=== PATIENT | male | born 1965 | race Caucasian/White ===

== ENCOUNTER 2016-08-24 19:32 | Emergency (ER) | payer BC ==
[2016-08-24] MEDS ORDERED: ACETAMINOPHEN 325 MG TABLET PO ONE (21:52)
--- NOTE | 2016-08-24 21:52 | ER Document Report ---
ED Medical Screen (RME) - General Stated Complaint: FLU LIKE SYMPTOMS Mode of Arrival: Ambulatory Information source: Patient Notes: Patient complains of flulike symptoms for the past 3 days. Patient complains of body aches and headache. Patient developed a rash today that is not pruritic. Patient has been on Bactrim for the past 10 days. Patient with fever that just started today. hx: Hypertension I have greeted and performed a rapid initial assessment of this patient. A comprehensive ED assessment and evaluation of the patient, analysis of test results and completion of the medical decision making process will be conducted by additional ED providers. - Related Data Allergies/Adverse Reactions: No Known Allergies Allergy (Unverified 08/24/16 21:49) Physical Exam - General General appearance: Appears well, Alert Notes: No meningismus - Skin Character of irregularity: Erythematous - Erythematous maculopapular rash to trunk and extremities and head
[2016-08-24 22:21] LABS: ABSOLUTE EOSINOPHILS # (AUTO) 0.4 10^3/uL (0.0-0.6); ABSOLUTE LYMPHOCYTES (AUTO) 0.9 10^3/uL (0.5-4.7); ABSOLUTE MONOCYTES (AUTO) 1.4 10^3/uL (0.1-1.4); ABSOLUTE NEUT (AUTO) 5.3 10^3/uL (1.7-8.2); BASOPHILS % (AUTO) 0.3 % (0-2); EOSINOPHILS % (AUTO) 4.8 % (0-6); HEMATOCRIT 49.8 % (37.9-51.0); HEMOGLOBIN 17.2 g/dL (13.5-17.0); HGB HCT DIFFERENCE 1.8; LYMPHOCYTES % (AUTO) 10.9 % (13-45); MEAN CORPUSCULAR HEMOGLOBIN 31.4 pg (27.0-33.4); MEAN CORPUSCULAR HGB CONC 34.4 g/dL (32.0-36.0); MEAN CORPUSCULAR VOLUME 91 fl (80-97); MONOCYTES % (AUTO) 17.6 % (3-13); RED BLOOD COUNT 5.46 10^6/uL (4.35-5.55); RED CELL DISTRIBUTION WIDTH 12.2 % (11.5-14.0); SEGMENTED NEUTROPHILS % (AUTO) 66.4 % (42-78)
[2016-08-24 22:23] LABS: APPEARANCE,URINE CLEAR; BILIRUBIN,URINE NEGATIVE (NEGATIVE); GLUCOSE, URINE NEGATIVE (NEGATIVE); KETONES,URINE NEGATIVE (NEGATIVE); LEUKOCYTE ESTERASE,URINE NEGATIVE (NEGATIVE); NITRITE,URINE NEGATIVE (NEGATIVE); PROTEIN,URINE NEGATIVE (NEGATIVE); URINE SPECIFIC GRAVITY 1.026
[2016-08-24 22:30] LABS: ALANINE AMINOTRANSFERASE 37 U/L (21-72); ALBUMIN 4.4 g/dL (3.5-5.0); ALKALINE PHOSPHATASE 98 U/L (38-126); ANION GAP 12 (5-19); ASPARTATE AMINO TRANSFERASE 23 U/L (17-59); BILIRUBIN,TOTAL 0.7 mg/dL (0.2-1.3); BLOOD UREA NITROGEN 25 mg/dL (7-20); CALCIUM 8.9 mg/dL (8.4-10.2); CARBON DIOXIDE 26 mmol/L (22-30); CHLORIDE 95 mmol/L (98-107); CREATININE RESULT 1.51 mg/dL (0.52-1.25); GLUCOSE 106 mg/dL (75-110); POTASSIUM 4.6 mmol/L (3.6-5.0); SODIUM 132.8 mmol/L (137-145); TOTAL PROTEIN 7.4 g/dL (6.3-8.2)
[2016-08-24] MEDS ORDERED: DIPHENHYDRAMINE HCL 50 MG CAPSULE PO ONE (23:42)
[2016-08-24] MEDS ORDERED: PREDNISONE 20 MG TABLET PO ONE (23:42)
--- NOTE | 2016-08-24 23:45 | ER Document Report ---
ED Skin Rash/Insect Bite/Abscs - General Mode of Arrival: Ambulatory Information source: Patient TRAVEL OUTSIDE OF THE U[place] IN LAST 30 DAYS: No - HPI Patient complains to provider of: Skin rash/lesion Onset: This morning Onset/Duration: Sudden, Persistent Quality of pain: No pain Skin Character: Rash Skin Temperature: Warm Medication exposure: Antibiotic - Bacterum <MONROE TRONCOSO - Last Filed: 08/25/16 00:37> <YUMIKO NAVARRO - Last Filed: 08/25/16 04:37> - General Chief Complaint: Flu Symptoms Stated Complaint: FLU LIKE SYMPTOMS Notes: Patient is a 51-year-old male presenting to the emergency department concerned of a diffuse rash over his entire body except for palms of hands and feet onset today. Patient denies any itching with the rash. Patient also complains of headache, low back pain, and pain in his legs for the past 3 days. Patient denies any urinary incontinence, discharge, pain with bowel movements, nausea, vomiting, diarrhea, abdominal pain, sore throat, runny nose, cough, difficulty breathing, or recent foreign travel. Patient was recently prescribed an Bacterum and took his last dose yesterday. (MONROE TRONCOSO) - Related Data Allergies/Adverse Reactions: Sulfa (Sulfonamide Antibiotics) Allergy (Verified 08/25/16 00:07) Past Medical History - General Information source: Patient - Social History Smoking Status: Never Smoker Frequency of alcohol use: Social Drug Abuse: None Family History: Reviewed & Not Pertinent Patient has suicidal ideation: No Patient has homicidal ideation: No - Past Medical History Cardiac Medical History: Reports: Hx Hypertension <MONROE TRONCOSO - Last Filed: 08/25/16 00:37> Review of Systems - Review of Systems Constitutional: No symptoms reported EENT: No symptoms reported Cardiovascular: No symptoms reported Respiratory: No symptoms reported Gastrointestinal: No symptoms reported Genitourinary: No symptoms reported Male Genitourinary: No symptoms reported Musculoskeletal: See HPI, Back pain, Other - Leg pain Skin: See HPI, Rash Hematologic/Lymphatic: No symptoms reported Neurological/Psychological: See HPI, Headaches -: Yes All other systems reviewed and negative <MONROE TRONCOSO - Last Filed: 08/25/16 00:37> Physical Exam - General General appearance: Alert - HEENT Head: Normocephalic, Atraumatic Eyes: Normal Pupils: PERRL - Respiratory Respiratory status: No respiratory distress Chest status: Nontender Breath sounds: Normal Chest palpation: Normal - Cardiovascular Rhythm: Regular Heart sounds: Normal auscultation Murmur: No - Abdominal Inspection: Normal Distension: No distension Bowel sounds: Normal Tenderness: Nontender Organomegaly: No organomegaly - Back Back: Normal, Nontender - Extremities General upper extremity: Normal inspection, Nontender, Normal color, Normal ROM , Normal temperature General lower extremity: Normal inspection, Nontender, Normal color, Normal ROM , Normal temperature, Normal weight bearing - Neurological Neuro grossly intact: Yes Cognition: Normal [place] Coma Scale Eye Opening: Spontaneous [place] Coma Scale Verbal: Oriented [place] Coma Scale Motor: Obeys Commands [place] Coma Scale Total: 15 Speech: Normal Motor strength normal: LUE, RUE, LLE, RLE Additional motor exam normals: Equal outreach rep - Psychological Associated symptoms: Normal affect, Normal mood - Skin Skin Temperature: Warm Skin Moisture: Dry Skin irregularity: Rash - diffuse Location of irregularity: Scalp, Neck, Abdomen, Chest, Back, Extremities <MONROE TRONCOSO - Last Filed: 08/25/16 00:37> Course - Laboratory Result Diagrams: 08/24/16 22:00 08/24/16 22:00 <MONROE TRONCOSO - Last Filed: 08/25/16 00:37> - Laboratory Result Diagrams: 08/24/16 22:00 08/24/16 22:00 <YUMIKO NAVARRO - Last Filed: 08/25/16 04:37> - Re-evaluation Re-evalutation: 08/24 Patient was recently started on sulfa. Patient appears to be having an allergic reaction with diffuse urticaria. Patient is told to stop taking any more Bactrim. He will be given steroids and is to take Benadryl and Claritin. Patient otherwise appears well. Vitals are stable. Patient does have some dehydration on his blood work and is instructed to drink plenty of fluids at home. Understands and agrees with plan. Return immediately if any worsening or concerning symptoms. (YUMIKO NAVARRO) - Vital Signs Vital signs: Temp Pulse Resp BP Pulse Ox 98.8 F 78 16 109/75 98 08/25/16 00:07 08/25/16 00:07 08/25/16 00:07 08/25/16 00:07 08/25/16 00:07 (MONROE TRONCOSO) (YUMIKO NAVARRO) - Laboratory Laboratory results interpreted by me: 08/24/16 08/24/16 08/24/16 22:00 22:00 22:05 Hgb 17.2 H Lymphocytes % 10.9 L Monocytes % 17.6 H Sodium 132.8 L Chloride 95 L BUN 25 H Creatinine 1.51 H Est GFR ( Amer) 59 L Est GFR (Non-Af Amer) 49 L Urine Urobilinogen 2.0 H Urine Ascorbic Acid 40 H (MONROE TRONCOSO) (YUMIKO NAVARRO) Discharge <MONROE TRONCOSO - Last Filed: 08/25/16 00:37> <YUMIKO NAVARRO - Last Filed: 08/25/16 04:37> - Discharge Clinical Impression: Dehydration Allergic reaction caused by a drug Qualifiers: Encounter type: initial encounter Qualified Code(s): T78.40XA - Allergy, unspecified, initial encounter Condition: Stable Disposition: HOME, SELF-CARE Instructions: Acute Allergic Reaction to Drugs ([facility]), Dehydration ([facility]) Additional Instructions: Return immediately if you have any worsening or concerning symptoms. Prescriptions: Loratadine [Claritin 10 mg Tablet] 10 mg PO DAILY #30 tablet Methylprednisolone [Medrol Dosepack (4 mg/Tab) 21 Tab/Dosepak] 4 mg PO ASDIR PRN #21 tab.ds.pk PRN Reason: Forms: Return to Work Scribe Attestation: 08/25/16 04:37 I personally performed the services described in the documentation, reviewed and edited the documentation which was dictated to the scribe in my presence, and it accurately records my words and actions. (YUMIKO NAVARRO) Scribe Documentation - Scribe Written by Scribe:: Monroe Troncoso 08/24/2016 [id number] acting as scribe for :: Fabiola <MONROE TRONCOSO - Last Filed: 08/25/16 00:37>
[2016-08-24] MEDS ORDERED: FAMOTIDINE 20 MG TABLET PO ONE (23:47)
[2016-08-25 00:09] VITALS: BP 109/75
== END 2016-08-24 23:59 | disposition home or self-care (01) ==
LOC: ER 19:32
DX: L27.0 Generalized skin eruption due to drugs and medicaments taken internally (principal); T37.0X5A Adverse effect of sulfonamides, initial encounter; E86.0 Dehydration; R51 Headache; M54.5 Low back pain; M79.606 Pain in leg, unspecified; I10 Essential (primary) hypertension
CPT/HCPCS: 99283; 36415; 87040; 85025; 80053; 81001; J7512

== ENCOUNTER 2017-01-22 18:02 | Emergency (ER) | payer BC, MEDICAID, OTHER ==
[2017-01-22 19:11] VITALS: BP 154/84
--- NOTE | 2017-01-22 19:13 | ER Document Report ---
ED Medical Screen (RME) - General Chief Complaint: Chest Pain Stated Complaint: CHEST PAIN, ANXIETY Time Seen by Provider: 01/22/17 19:07 Mode of Arrival: Ambulatory Information source: Patient Notes: This is a 51-year-old with a history of anxiety, hypertension, HTN and migraines who presents to the emergency room with increased anxiety after running out of his medicines. Patient also states he has been having intermittent headaches and chest wall pain. Patient states that the chest wall pain is what he normally experiences when his anxiety is bothering him. He denies any exertional shortness of breath or exertional chest heaviness. He denies any recent weight gain or weight loss. He states he recently relocated from [place] and had previously seen doctors [facility]. He states he has been trying to get into an appointment to get refills on his medicines and ends not been able to get in to see the doctors at the [facility]. TRAVEL OUTSIDE OF THE [place] IN LAST 30 DAYS: No - HPI Onset: Just prior to arrival Onset/Duration: Gradual Quality of pain: Sharp Severity: Mild Associated Symptoms: Chest pain. denies: Diarrhea, Nausea, Shortness of breath , Sweating Exacerbated by: Movement Relieved by: Denies Similar symptoms previously: Yes Recently seen / treated by doctor: No - Related Data Smoking: Non-smoker Frequency of alcohol use: None Drug Abuse: None Allergies/Adverse Reactions: Sulfa (Sulfonamide Antibiotics) Allergy (Verified 01/22/17 18:15) Past Medical History - General Information source: Patient - Social History Cigarette use (# per day): No Chew tobacco use (# tins/day): No Frequency of alcohol use: Rare Drug Abuse: None Lives with: Spouse/Significant other Family history: Reviewed & Not Pertinent - Past Medical History Cardiac Medical History: Reports: Hx Hypertension Pulmonary Medical History: Reports: None Neurological Medical History: Reports: None Endocrine Medical History: Reports: None Renal/ Medical History: Reports: None. Denies: Hx Peritoneal Dialysis Malignancy Medical History: Reports None GI Medical History: Reports: None Musculoskeltal Medical History: Reports None Skin Medical History: Reports None Psychiatric Medical History: Reports: Hx Anxiety Traumatic Medical History: Reports: None Infectious Medical History: Reports: None Past Surgical History: Reports: Hx Orthopedic Surgery - carpal tunnel bilateral Review of Systems - Review of Systems Constitutional: denies: Chills, Fever EENT: No symptoms reported Cardiovascular: See HPI Respiratory: No symptoms reported Gastrointestinal: No symptoms reported Genitourinary: No symptoms reported Male Genitourinary: No symptoms reported Musculoskeletal: See HPI Skin: No symptoms reported Hematologic/Lymphatic: No symptoms reported Neurological/Psychological: No symptoms reported Physical Exam - Vital signs Vitals: Temp Pulse Resp BP Pulse Ox 98.2 F 85 16 159/101 H 99 01/22/17 18:15 01/22/17 18:15 01/22/17 18:15 01/22/17 18:15 01/22/17 18:15 Notes: Physical exam: GENERAL:-year-old man, alert and oriented 3, no acute distress HEAD: Atraumatic, normocephalic. EYES: Pupils equal round and reactive to light, extraocular movements intact, sclera anicteric, conjunctiva are normal. ENT: TMs normal, nares patent, oropharynx clear without exudates. Moist mucous membranes. NECK: Normal range of motion, supple without lymphadenopathy or JVD. LUNGS: Breath sounds clear to auscultation bilaterally and equal. No wheezes rales or rhonchi. HEART: Regular rate and rhythm without murmurs, rubs or gallops. ABDOMEN: Soft, normoactive bowel sounds. No tenderness to palpation. No guarding, no rebound. No masses appreciated. EXTREMITIES: Normal range of motion, no pitting or edema. No clubbing or cyanosis. NEUROLOGICAL: Cranial nerves II through XII grossly intact. Normal speech, normal gait. PSYCH: Normal mood, normal affect. SKIN: Warm, Dry, normal turgor, no rashes or lesions noted. T Course - Vital Signs Vital signs: Temp Pulse Resp BP Pulse Ox 97.9 F 81 16 154/84 H 97 01/22/17 19:10 01/22/17 19:10 01/22/17 19:10 01/22/17 19:10 01/22/17 19:10 - EKG Interpretation by [facility] Rate: Normal Rhythm: NSR - EKG shows normal sinus rhythm with a ventricular rate of 74, no acute ST-T wave change Doctor's Discharge - Discharge Clinical Impression: Anxiety, Hypertension Condition: Stable Disposition: HOME, SELF-CARE Instructions: Anxiety ([facility]), High Blood Pressure ([facility]) Additional Instructions: REC: Current medicines. Follow-up with the [facility] for blood pressure check and continued follow-up. Return to the emergency room for any concerns or to getting worse: Shortness of breath, worsening pain. Prescriptions: Alprazolam [Xanax 0.5 Mg Tablet] 1 tab PO BID #30 tablet Losartan/Hydrochlorothiazide [Hyzaar 50-12.5 Tablet] 1 each PO DAILY #30 tablet
--- NOTE | 2017-01-22 19:14 | EKG REPORT ---
SEVERITY:- ABNORMAL ECG - SINUS RHYTHM CONSIDER OLD INFERIOR NV : Confirmed by: Daniel Sibley MD 22-Jan-2017 19:13:32
== END 2017-01-22 19:16 | disposition home or self-care (01) ==
LOC: ER 18:02
DX: F41.9 Anxiety disorder, unspecified (principal); I10 Essential (primary) hypertension; R07.9 Chest pain, unspecified; Z88.2 Allergy status to sulfonamides
CPT/HCPCS: 93005; 93010; 99284

== ENCOUNTER 2017-04-30 09:05 | Emergency (ER) | payer SELFPAY ==
[2017-04-30] MEDS ORDERED: ASPIRIN 81 MG TABLET, CHEWABLE PO ONE (10:12)
[2017-04-30] MEDS ORDERED: LOSARTAN POTASSIUM 50 MG TABLET PO ONE (10:12)
[2017-04-30] MEDS ORDERED: ALPRAZOLAM 0.5 MG TABLET PO ONE (10:12)
--- NOTE | 2017-04-30 10:12 | ER Document Report ---
ED Medical Screen (RME) - General Chief Complaint: Chest Tightness Stated Complaint: DIZZINESS Time Seen by Provider: 04/30/17 10:12 Mode of Arrival: Ambulatory Information source: Patient Notes: Patient presents today with complaints of chest tightness. Patient has a history of a "leaky valve". Patient has had an associated cough with his shortness of breath. Patient states he has a history of anxiety and he has not had his anxiety or blood pressure medicine in the last 4 days. Patient denies any family history of cardiac disease. TRAVEL OUTSIDE OF THE [place] IN LAST 30 DAYS: No - Related Data Allergies/Adverse Reactions: Sulfa (Sulfonamide Antibiotics) Allergy (Verified 04/30/17 09:52) Past Medical History - General Information source: Patient - Social History Chew tobacco use (# tins/day): No Frequency of alcohol use: None Drug Abuse: None Family history: Reviewed & Not Pertinent - Past Medical History Cardiac Medical History: Reports: Hx Hypertension, Other - "leaky valve" Psychiatric Medical History: Reports: Hx Anxiety Past Surgical History: Reports: Hx Orthopedic Surgery - carpal tunnel bilateral Review of Systems - Review of Systems Cardiovascular: See HPI, Chest pain Respiratory: See HPI, Cough, Short of breath Neurological/Psychological: See HPI, Anxiety Physical Exam - Vital signs Vitals: Temp Pulse Resp BP Pulse Ox 98.3 F 78 18 150/83 H 100 04/30/17 09:22 04/30/17 09:22 04/30/17 09:22 04/30/17 09:22 04/30/17 09:22 - Notes Notes: Physical Exam: General: Alert, appears well. HEENT: Normocephalic. Atraumatic. PERRLA. Extraocular movements intact. Oropharynx clear. Neck: Supple. Heart: 2/6 systolic murmur, normal rate and rhythm. Respiratory: No respiratory distress. Abdominal: Normal Inspection. No distension. Extremities: Moves all four extremities. Neurological: Normal cognition. AAOx4. Normal speech. Psychological: Normal affect. Normal Mood. Skin: Warm. Dry. Normal color. Course - Vital Signs Vital signs: Temp Pulse Resp BP Pulse Ox 98.3 F 78 18 150/83 H 100 04/30/17 09:22 04/30/17 09:22 04/30/17 09:22 04/30/17 09:22 04/30/17 09:22 Scribe Documentation - Scribe Written by Azeb:: Azeb Bear, 04/30/2017 1045 acting as scribe for :: Rex
[2017-04-30 10:44] LABS: ABSOLUTE BASOPHILS # (AUTO) 0.1 10^3/uL (0.0-0.2); ABSOLUTE EOSINOPHILS # (AUTO) 0.3 10^3/uL (0.0-0.6); ABSOLUTE LYMPHOCYTES (AUTO) 1.6 10^3/uL (0.5-4.7); ABSOLUTE NEUT (AUTO) 5.2 10^3/uL (1.7-8.2); EOSINOPHILS % (AUTO) 3.7 % (0-6); HEMATOCRIT 43.4 % (37.9-51.0); HEMOGLOBIN 14.9 g/dL (13.5-17.0); HGB HCT DIFFERENCE 1.3; LYMPHOCYTES % (AUTO) 19.1 % (13-45); MEAN CORPUSCULAR HGB CONC 34.3 g/dL (32.0-36.0); MEAN CORPUSCULAR VOLUME 93 fl (80-97); MONOCYTES % (AUTO) 12.5 % (3-13); RED BLOOD COUNT 4.65 10^6/uL (4.35-5.55); RED CELL DISTRIBUTION WIDTH 12.6 % (11.5-14.0); SEGMENTED NEUTROPHILS % (AUTO) 63.7 % (42-78); WHITE BLOOD COUNT 8.1 10^3/uL (4.0-10.5)
--- NOTE | 2017-04-30 10:48 | RADIOLOGY REPORT (SQ) ---
EXAM DESCRIPTION: CHEST SINGLE VIEW COMPLETED DATE/TIME: 04/30/2017 10:40 am REASON FOR STUDY: chest tightness COMPARISON: None. EXAM PARAMETERS: NUMBER OF VIEWS: One view. TECHNIQUE: Single frontal radiographic view of the chest acquired. RADIATION DOSE: NA LIMITATIONS: None. FINDINGS: LUNGS AND PLEURA: No opacities, masses or pneumothorax. No pleural effusion. MEDIASTINUM AND HILAR STRUCTURES: No masses. Contour normal. HEART AND VASCULAR STRUCTURES: Heart normal in size. Normal vasculature. BONES: No acute findings. HARDWARE: None in the chest. OTHER: No other significant finding. IMPRESSION: NO ACUTE RADIOGRAPHIC FINDING IN THE CHEST. TECHNICAL DOCUMENTATION: JOB ID: [id number]
[2017-04-30 11:08] LABS: ALANINE AMINOTRANSFERASE 42 U/L (21-72); ALBUMIN 4.4 g/dL (3.5-5.0); ALKALINE PHOSPHATASE 87 U/L (38-126); ANION GAP 13 (5-19); ASPARTATE AMINO TRANSFERASE 25 U/L (17-59); BILIRUBIN,DIRECT 0.3 mg/dL (0.0-0.4); BILIRUBIN,TOTAL 0.6 mg/dL (0.2-1.3); BLOOD UREA NITROGEN 15 mg/dL (7-20); CALCIUM 9.9 mg/dL (8.4-10.2); CARBON DIOXIDE 26 mmol/L (22-30); CHLORIDE 106 mmol/L (98-107); CREATINE KINASE 194 U/L (55-170); GLUCOSE 99 mg/dL (75-110); POTASSIUM 4.4 mmol/L (3.6-5.0); SODIUM 144.5 mmol/L (137-145); TOTAL PROTEIN 7.3 g/dL (6.3-8.2)
[2017-04-30 11:13] LABS: CREATINE KINASE MB 1.93 ng/mL (<4.55)
[2017-04-30 11:14] LABS: TROPONIN I < 0.012 ng/mL
--- NOTE | 2017-04-30 11:52 | ER Document Report ---
ED General <VERONICA BAINS - Last Filed: 04/30/17 12:14> - General Mode of Arrival: Ambulatory Information source: Patient TRAVEL OUTSIDE OF THE [place] 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 Patient is additionally complaining of a dry cough, difficulty sleeping (no different than his usual difficulty sleeping), and a hoarse voice. Patient reports that he has been out of his Xanax and Losartan medication for 4 days because he is uninsured and [facility] (FIONA FLORES) - Related Data Allergies/Adverse Reactions: Sulfa (Sulfonamide Antibiotics) Allergy (Verified 04/30/17 09:52) Past Medical History - General Information source: Patient - Social History Smoking Status: Never Smoker Chew tobacco use (# tins/day): No Frequency of alcohol use: None Drug Abuse: None Family History: Reviewed & Not Pertinent Patient has suicidal ideation: No Patient has homicidal ideation: No - Past Medical History Cardiac Medical History: Reports: Hx Hypertension, Other - "leaky valve" Renal/ Medical History: Denies: Hx Peritoneal Dialysis Psychiatric Medical History: Reports: Hx Anxiety Past Surgical History: Reports: Hx Orthopedic Surgery - carpal tunnel bilateral <FIONA FLORES - Last Filed: 04/30/17 13:36> Review of Systems - Review of Systems Constitutional: No symptoms reported EENT: No symptoms reported Cardiovascular: No symptoms reported Respiratory: See HPI, Cough, Short of breath Gastrointestinal: No symptoms reported Genitourinary: No symptoms reported Male Genitourinary: No symptoms reported Musculoskeletal: No symptoms reported Skin: No symptoms reported Hematologic/Lymphatic: No symptoms reported Neurological/Psychological: No symptoms reported -: Yes All other systems reviewed and negative <FIONA FLORES - Last Filed: 04/30/17 13:36> Physical Exam - General General appearance: Alert In distress: None - HEENT Head: Normocephalic, Atraumatic Eyes: Normal Extraocular movements intact: Yes Pupils: PERRL Ears: Normal External canal: Normal Tympanic membrane: Normal Nasal: Normal - Respiratory Respiratory status: No respiratory distress Breath sounds: Normal - Cardiovascular Rhythm: Regular Heart sounds: Normal auscultation - Abdominal Inspection: Normal - Extremities General upper extremity: Normal inspection, Normal ROM General lower extremity: Normal inspection, Normal ROM - Neurological Neuro grossly intact: Yes Speech: Normal - hoarse voice - Psychological Associated symptoms: Normal affect, Normal mood - Skin Skin Temperature: Warm Skin Moisture: Dry Skin Color: Normal <FIONA FLORES - Last Filed: 04/30/17 13:36> - Vital signs Vitals: Temp Pulse Resp BP Pulse Ox 98.3 F 78 18 150/83 H 100 04/30/17 09:22 04/30/17 09:22 04/30/17 09:22 04/30/17 09:22 04/30/17 09:22 Course - Laboratory Result Diagrams: 04/30/17 10:30 04/30/17 10:30 - Diagnostic Test Radiology reviewed: Image reviewed, Reports reviewed - Chest x-ray is unremarkable - EKG Interpretation by Me EKG shows normal: Sinus rhythm, [place], Intervals, QRS Complexes. abnormal: ST-T Waves - Nonspecific inferior T abnormalities Rate: Normal - 74 Rhythm: NSR When compared to previous EKG there are: No significant change <VERONICA BAINS - Last Filed: 04/30/17 12:14> - Laboratory Result Diagrams: 04/30/17 10:30 04/30/17 10:30 <FIONA FLORES - Last Filed: 04/30/17 13:36> - Re-evaluation Re-evalutation: 04/30/17 12:06 The patient complains of shortness of breath. His pulse ox is 100% on room air without breathing fast resting quite comfortably. He did receive Xanax at triage along with the blood pressure medication he has not been taking for the last 4 days. I informed the patient I will refill his blood pressure medication, but he will have to see his primary care provider for Xanax or other controlled substances. (VERONICA BAINS) - Vital Signs Vital signs: Temp Pulse Resp BP Pulse Ox 98.3 F 78 17 114/77 98 04/30/17 09:22 04/30/17 09:22 04/30/17 12:35 04/30/17 12:35 04/30/17 12:35 - Laboratory Laboratory results interpreted by me: 04/30/17 10:30 Creatine Kinase 194 H Discharge <HERSONVERONICA VILLASEÑOR - Last Filed: 04/30/17 12:14> <FIONA FLORES - Last Filed: 04/30/17 13:36> - Discharge Clinical Impression: Viral upper respiratory tract infection with cough, Shortness of breath, Anxiety, Has run out of medications Condition: Stable Disposition: HOME, SELF-CARE Additional Instructions: Upper Respiratory Illness: You have a viral infection of the respiratory passages -- a "cold." This common infection causes nasal congestion, drainage, and often sore throat and cough. It is caused by a virus and is highly contagious. The disease usually lasts a week or more, though the worst symptoms are usually over in 3 or 4 days. There is no "cure" for the viral infection -- it must run its course. If there is a complication, such as bacterial infection in the nose, sinuses, middle ear, or bronchial tubes, antibiotics may be required, but antibiotics won 't affect the virus. If you smoke, you should STOP!! Drink plenty of fluids. A humidifier may help. An expectorant medication or decongestant may make you more comfortable. Use acetaminophen or ibuprofen for fever or aches. See the doctor if fever persists over two or three days, if there is any significant worsening of your symptoms, or if you simply fail to improve as expected. Dyspnea, Nonspecific: You were evaluated for shortness of breath, or dyspnea. Dyspnea has many causes, and some are more serious than others. Sometimes it's impossible to diagnose the cause of dyspnea with the tests that are available on an emergency basis. Based on our evaluation today, you do not need hospitalization now. We found no evidence of pneumonia, collapsed lung, blood clots in the lung, tumors , or heart failure. Causes of non-specific dyspnea can include asthma or bronchospasm, hyperventilation, emotional distress, heart disease, emphysema, fibrosis of the lung, and stiffness of the chest wall. In healthy individuals with a single episode, it's sometimes reasonable to do nothing but wait to see if the problem occurs again. Additional tests used to evaluate dyspnea can include cardiac stress testing, echocardiography, pulmonary function testing, CAT scan of the chest, bronchoscopy or pulmonary biopsy. Return if shortness of breath persists or worsens, or if you develop chest pain, fever, cough, confusion, or fainting. Anxiety: The physician feels that some of your health problems are being caused by anxiety. Anxiety affects your health in many ways. Anxiety alone can cause palpitations, sweats, chest pains, abdominal pains, shortness of breath, and headaches. It contributes to ulcer disease, high blood pressure, irritable bowel syndrome, and has been shown to cause flare-ups of many other diseases. Anxiety is not a simple disorder to treat. If the anxiety is due to recent life stresses, you may simply need time to "work through" the changes. If the anxiety is due to an underlying unhappiness with yourself or due to psychiatric disturbance, professional help will be needed. Your physician can refer you for further help if needed. Anti-anxiety medication is occasionally given if the stress is acute or if you are having trouble sleeping. Chronic or frequent use of these medications is not a good idea because the body becomes reliant on it, preventing you from dealing with life's normal stresses. //////////////////////////////////////////////////////////////////////////////// //////////////////////////////////////////////////////////////////////////////// ///////////////// Drink plenty of fluids and get plenty of rest to help get over your upper respiratory tract infection. You will be given a prescription for the losartan to take for your blood pressure until you can see your primary care provider. We do not refill prescriptions for narcotics or benzodiazepines in the emergency room. You will need to see your primary care provider for prescriptions for Xanax. Prescriptions: Losartan Potassium 50 mg PO DAILY #30 tablet Forms: Return to Work Referrals: KATYA BELLA MD [Primary Care Provider] - Follow up as needed Scribe Attestation: 04/30/17 12:13 I personally performed the services described in the documentation, reviewed and edited the documentation which was dictated to the scribe in my presence, and it accurately records my words and actions. (VERONICA BAINS) Scribe Documentation - Scribe Written by Scribe:: Azeb Andrews, 04/30/2017 1234 acting as scribe for :: Herson <FIONA FLORES - Last Filed: 04/30/17 13:36>
[2017-04-30 12:44] VITALS: BP 114/77
--- NOTE | 2017-04-30 12:59 | EKG REPORT ---
SEVERITY:- ABNORMAL ECG - SINUS RHYTHM BORDERLINE INFERIOR Q WAVES NONSPECIFIC T ABNORMALITIES, INFERIOR LEADS : Confirmed by: Daniel Sibley MD 30-Apr-2017 12:59:08
== END 2017-04-30 12:45 | disposition home or self-care (01) ==
LOC: ER 09:05
DX: J06.9 Acute upper respiratory infection, unspecified (principal); F41.9 Anxiety disorder, unspecified; R06.02 Shortness of breath; R07.9 Chest pain, unspecified; R42 Dizziness and giddiness; I10 Essential (primary) hypertension; Z88.2 Allergy status to sulfonamides
CPT/HCPCS: 36415; 71010; 80053; 82550; 82553; 84484; 85025; 93005; 93010; 99284

== ENCOUNTER 2017-10-10 09:36 | Emergency (ER) | payer BC, MEDICAID ==
[2017-10-10] MEDS ORDERED: KETOROLAC TROMETHAMINE INJ/PF 30 MG/1 ML SDV IM ONE (10:01)
--- NOTE | 2017-10-10 10:03 | ER Document Report ---
ED Respiratory Problem - General Chief Complaint: Sore Throat Stated Complaint: SORE THROAT Time Seen by Provider: 10/10/17 09:44 Mode of Arrival: Ambulatory Information source: Patient TRAVEL OUTSIDE OF THE [place] IN LAST 30 DAYS: No - HPI Patient complains to provider of: Cough Notes: Patient is here with complaints of cough, sore throat, body aches, chills, headache for the last 2 days. He states that he has had the cough for nearly a week. He denies any known fever. He denies any nausea or diarrhea. He states that he did vomit once after coughing and gagging himself. He denies any rashes. He denies abdominal pain. He denies any blurred or loss vision. He denies any numbness, tingling, weakness. No chest pain or shortness of breath. No neck stiffness. No rash. No known sick contacts. Nothing makes his symptoms better or worse. He has no other complaints at this time. - Related Data Allergies/Adverse Reactions: Sulfa (Sulfonamide Antibiotics) Allergy (Verified 04/30/17 09:52) Past Medical History - Social History Smoking Status: Never Smoker Family History: Reviewed & Not Pertinent Patient has suicidal ideation: No Patient has homicidal ideation: No - Past Medical History Cardiac Medical History: Reports: Hx Hypertension Renal/ Medical History: Denies: Hx Peritoneal Dialysis Psychiatric Medical History: Reports: Hx Anxiety Past Surgical History: Reports: Hx Orthopedic Surgery - carpal tunnel bilateral Review of Systems - Review of Systems -: Yes All other systems reviewed and negative Physical Exam - Vital signs Vitals: Temp Pulse Resp BP Pulse Ox 97.8 F 85 16 139/73 H 98 10/10/17 09:40 10/10/17 09:40 10/10/17 09:40 10/10/17 09:40 10/10/17 09:40 - Notes Notes: GENERAL: alert, cooperative, nontoxic, no distress. HEAD: normocephalic, atraumatic EYES: conjunctiva pink without discharge, no external redness or swelling. EARS: no external swelling, no external redness, no mastoid redness, swelling, tenderness. Ear canals are clear without swelling or drainage. TMs pearly hernandez , no redness, no bulging, normal landmarks, no perforation. NOSE: atraumatic, no external swelling. clear rhinorrhea noted. MOUTH/THROAT: mucous membranes moist and pink, posterior pharynx without erythema, swelling, exudate. No trismus or drooling. NECK: soft, supple, full range of motion, no meningismus. CHEST: no distress, lungs clear and equal throughout. No wheezing, rales, rhonchi. CARDIAC: regular rate and rhythm, no murmur, normal capillary refill, normal pulses. No peripheral edema noted. BACK: full range of motion, no CVA tenderness. EXTREMITIES: full range of motion of all extremities. No redness, no swelling. NEURO: alert and oriented A&O3, no focal deficits, full range of motion of all extremities. PYSCH: appropriate mood, affect. Patient is cooperative. SKIN: pink, warm, dry, no rash. Course - Re-evaluation Re-evalutation: 10/10/17 11:05 Patient is nontoxic appearing with stable vitals. He is here with complaints of sore throat, body aches, cough and generally not feeling well. He has a benign exam with no focal findings. Lungs are clear. He is not hypoxic. His vitals are stable. Throat exam is unremarkable. No signs of peritonsillar abscess. Rapid strep is negative, throat cultures currently pending and the patient will be contacted if antibiotics are needed. Chest x-ray is negative for acute findings as well. There is a high likelihood that the patient could have influenza as we have seen a fair amount of influenza here recently. I do not have flu test available at this time, therefore no testing was performed. Patient will be discharged home with supportive care for viral syndrome. Follow -up if not improving in the next week, sooner for worsening symptoms, high fever , difficulty breathing or swallowing, or for any further concerns. The patient is noted to have elevated blood pressure during today's emergency department visit. The patient was informed of this finding. The patient was instructed that this may be related to pre-hypertension and requires further evaluation with a primary care provider. The patient has no hypertensive symptoms at this time. The patient's emergency department workup and current diagnosis were explained to the patient and or family. Follow-up instructions were provided. Medications if prescribed were discussed. Instructions for when to return to the emergency department including specific worrisome symptoms were discussed with the patient and/or family. - Vital Signs Vital signs: Temp Pulse Resp BP Pulse Ox 97.8 F 85 16 139/73 H 98 10/10/17 09:40 10/10/17 09:40 10/10/17 09:40 10/10/17 09:40 10/10/17 09:40 - Diagnostic Test Radiology reviewed: Image reviewed, Reports reviewed - Negative chest x-ray Discharge - Discharge Clinical Impression: Viral syndrome Upper respiratory infection Qualifiers: URI type: unspecified viral URI Qualified Code(s): J06.9 - Acute upper respiratory infection, unspecified Condition: Stable Disposition: HOME, SELF-CARE Instructions: Sore Throat ([facility]), Upper Respiratory Illness ([facility]), Viral Syndrome ([facility]) Additional Instructions: Take medications as prescribed. Drink plenty of fluids. Rest. Follow-up if not improving in the next week, sooner for worsening symptoms, high fever, persistent vomiting, difficulty breathing or swallowing, or for any further concerns. Your blood pressure was elevated during today's visit. Have this rechecked with your doctor. Prescriptions: Diclofenac Sodium [Voltareangella 50 Mg Norm.] 50 mg PO BID #20 tablet. Fluticasone Propionate [Flonase Nasal Conger 50 Mcg/Conger 16 gm] 1 spray NASL Q12 #1 inhaler Forms: Elevated Blood Pressure, Smoking Cessation Education Referrals: [facility] [Provider Group] - Follow up as needed
--- NOTE | 2017-10-10 10:42 | RADIOLOGY REPORT (SQ) ---
EXAM DESCRIPTION: CHEST PA/LAT COMPLETED DATE/TIME: 10/10/2017 10:33 am REASON FOR STUDY: cough, fever COMPARISON: 04/30/2017 EXAM PARAMETERS: NUMBER OF VIEWS: two views TECHNIQUE: Digital Frontal and Lateral radiographic views of the chest acquired. RADIATION DOSE: NA LIMITATIONS: none FINDINGS: LUNGS AND PLEURA: No opacities, masses or pneumothorax. No pleural effusion. MEDIASTINUM AND HILAR STRUCTURES: No masses or contour abnormalities. HEART AND VASCULAR STRUCTURES: Heart normal size. No evidence for failure. BONES: No acute findings. HARDWARE: None in the chest. OTHER: No other significant finding. IMPRESSION: NO SIGNIFICANT RADIOGRAPHIC FINDING IN THE CHEST. TECHNICAL DOCUMENTATION: JOB ID: [id number] [employer]- All Rights Reserved Reading location - IP/workstation name: [email or web address]
[2017-10-10 11:20] VITALS: BP 105/71
== END 2017-10-10 11:20 | disposition home or self-care (01) ==
LOC: ER 09:36
DX: J06.9 Acute upper respiratory infection, unspecified (principal); J02.9 Acute pharyngitis, unspecified; B34.9 Viral infection, unspecified; R05 Cough; R51 Headache; I10 Essential (primary) hypertension; R68.83 Chills (without fever); Z88.2 Allergy status to sulfonamides
CPT/HCPCS: 99283; 96372; 87070; 87880; 71046; J1885

== ENCOUNTER 2018-01-16 17:34 | Emergency (ER) | payer MEDICAID ==
[2018-01-16] MEDS ORDERED: FAMOTIDINE 20 MG TABLET PO ONE (18:02)
[2018-01-16] MEDS ORDERED: METHYLPREDNISOLONE INJ 125 MG/2 ML SDV IM ONE (18:02)
[2018-01-16] MEDS ORDERED: DIPHENHYDRAMINE HCL 50 MG CAPSULE PO ONE (18:02)
--- NOTE | 2018-01-16 18:04 | ER Document Report ---
HPI - HPI Pain Level: 1 Notes: Patient is a 52-year-old male with no significant past medical history who presents to the ED complaining of hives generalized 1 day. Patient is unaware of any new chemicals, detergents, soaps, plants, foods, or known insect bites. Patient states that he did take some Benadryl yesterday which may have helped minimally, but the hives returned and became exacerbated when he started sweating. Patient states that the hives itch and he has no associated pain. No other concerns or complaints. He has not had any new medications. He is eating and drinking without any difficulties. He is urinating normally and having normal bowel movements. Denies any headache, fever, neck pain, URI, sore throat, chest pain, palpitations, syncope, cough, shortness of breath, wheeze, dyspnea, abdominal pain, nausea/vomiting/diarrhea, urinary retention, dysuria, hematuria, loss of control of bowel or bladder, numbness/tingling, saddle anesthesia, muscle paralysis/weakness. - ROS Systems Reviewed and Negative: Yes All other systems reviewed and negative Past Medical History - Social History Smoking Status: Unknown if Ever Smoked Family History: Reviewed & Not Pertinent - Past Medical History Cardiac Medical History: Reports: Hx Hypertension Renal/ Medical History: Denies: Hx Peritoneal Dialysis Psychiatric Medical History: Reports: Hx Anxiety Past Surgical History: Reports: Hx Orthopedic Surgery - carpal tunnel bilateral Vertical Provider Document - CONSTITUTIONAL Agree With Documented VS: Yes Notes: PHYSICAL EXAMINATION: GENERAL: Well-appearing, well-nourished and in no acute distress. HEAD: Atraumatic, normocephalic. EYES: Pupils equal round and reactive to light, extraocular movements intact, sclera anicteric, conjunctiva are normal. ENT: Nares patent and without discharge. oropharynx clear without exudates. No tonsilar hypertrophy or erythema. Moist mucous membranes. NECK: Normal range of motion, supple without lymphadenopathy LUNGS: Breath sounds clear to auscultation bilaterally and equal. No wheezes rales or rhonchi. HEART: Regular rate and rhythm without murmurs, rubs, gallops. ABDOMEN: Soft, nontender, nondistended abdomen. No guarding, no rebound. Normal bowel sounds present. Musculoskeletal: FROM to passive/active. Strength 5+/5. Extremities: No cyanosis, clubbing, or edema b/l. Peripheral pulses 2+. Capillary refill less than 3 seconds. NEUROLOGICAL: Cranial nerves grossly intact. Normal speech, normal gait. PSYCH: Normal mood, normal affect. SKIN: generalized hives noted. Non-tender. No abscess, purulence, or streaks. - INFECTION CONTROL TRAVEL OUTSIDE OF THE [place] IN LAST 30 DAYS: No Course - Re-evaluation Re-evalutation: 01/16/18 18:15 Patient is an afebrile, well-hydrated, 52-year-old male who presents to the ED with generalized hives unspecified. Vitals are acceptable without any significant tachycardia, tachypnea, or hypoxia. PE is otherwise unremarkable. Patient is nontoxic-appearing and is tolerating p.o. without difficulties. The hives are nontender. No I&D, labs, or imaging warranted at this time based on H &P. Patient given Solu-Medrol, Pepcid, and Benadryl. I will send him home with a steroid taper. Conservative measures otherwise for symptoms. Low suspicion for any STS, and excising fasciitis, erythema nodosum, sepsis, meningitis, severe dehydration, respiratory compromise, or other systemic emergent condition at this time. Patient is aware that condition can change from initial presentation and he needs to monitor symptoms closely and seek medical attention with any acute changes. Recheck with your PCM in 2-3 days. Return to the ED with any worsening/concerning symptoms otherwise as reviewed discharge. Patient is in agreement. Discharge - Discharge Clinical Impression: Hives Condition: Stable Disposition: HOME, SELF-CARE Additional Instructions: Keep the skin clean Wash with soap and water Tylenol/ibuprofen if needed Triple antibiotic ointment daily for any break in the skin Take medication as directed Monitor for any worsening symptoms Recheck with your PCM in 2-3 days/you may keep regularly scheduled appointment tomorrow Consider consult with dermatology/rn picu for ongoing/worsening symptoms Return to the ED with any worsening symptoms and/or development of fever, headache, chest pain, palpitations, syncope, shortness of breath, trouble breathing, abdominal pain, n/v/d, abscess, purulent discharge, red streaks, worsening swelling, or other worsening symptoms that are concerning to you. Prescriptions: Prednisone 20 mg PO ASDIR #18 tablet Referrals: ALEK TORREZ DO [ACTIVE STAFF] - Follow up as needed
[2018-01-16 18:15] VITALS: BP 120/71
== END 2018-01-16 18:33 | disposition home or self-care (01) ==
LOC: ER 17:34
DX: L50.9 Urticaria, unspecified (principal); I10 Essential (primary) hypertension
CPT/HCPCS: 99282; J3490 ×2; J2930

== ENCOUNTER → 2018-06-08 | Outpatient (CLI) | payer MEDICAID ==
--- NOTE | 2018-06-08 15:11 | DRAGON STRESS TEST REPORT ---
Exercise EKG treadmill stress test. Data procedure: 06/08/2018.Ordering Provider: Dr. Gerri Pickens. Patient Status: Outpatient. Indication: Dyspnea On Exertion coronary risk factors:. Age, and hypertension Significant physical findings prior to stress testing show a blood pressure of 136/85 and a heart rate of 71 beat per minute. Auscultation of the heart shows normal S1 and S2.NoS3 or S4 gallops. Systolic murmur of aortic stenosis in the apex. A2 is preserved. There is no significant carotid delay. Systolic murmur in the apex, without radiation. No rub. Lungs are clear to auscultation and percussion. Resting 12-lead EKG:. Sinus Rhythm. Within Normal Limits Procedure: The patient was excised on a standard Jonathan protocol. . The patient walked a total of 9 minutes and 17 seconds on this protocol and reached a peak heart rate of 134 beats per minute, which is 79% of maximum predicted heart rate for age. This is at a good workload of 10.5 METS. The test was stopped because of patient developing shortness of breath, and inability to exercise further. The patient described no symptoms of chest pain/ discomfort, but did develop shortness of breath beginning at her heart rate of 110 bpm at around 8 minutes into exercise. This was mild, and at peak exercise did not increase. Symptoms of shortness of breath resolved promptly in recovery. Exercise EKG's show:. There is no EKG evidence of exercise-induced myocardial ischemia by EKG criteria. Arrhythmias seen:None. The blood pressure response was normal. At peak exercise the blood pressure was 166/83 millimeters of Hg. The double product was 22.0 K. Summary of findings and interpretation: 1. No chest pain or chest discomfort symptoms reproduced. But did reproduce the patient's of dyspnea on exertion after a good exercise level achieved, but at the submaximal heart rate of 79% of maximum predicted heart rate for age. 2. No EKG evidence of ischemia in the form of ST segment depression. 3. Normal blood pressure response. 4. No arrhythmias seen. 5. Good exercise tolerance, good aerobic capacity. Diagnostic treadmill stress test negative for ischemia by EKG criteria. But did reproduce the patient's symptoms of dyspnea on greater than moderate exertion.. Recommendations: Aggressive risk factor modification, and treatment of underlying co-morbidities , and close cardiology follow-up. The patient was given information on the symptoms of aortic stenosis, with instruction to call me [patient has my cell phone number] if any of those symptoms mentioned in the handout occurs. DULCEM ARIA
== END ==
LOC: SP 08:39
PROVIDERS: ATTEND Specialist
DX: R06.02 Shortness of breath (principal)
CPT/HCPCS: 93017

== ENCOUNTER → 2019-06-29 | Outpatient (CLI) | payer OTHER ==
[2019-06-29 09:55] LABS: HEMOGLOBIN 15.6 g/dL (13.5-17.0); MEAN CORPUSCULAR HGB CONC 34.8 g/dL (32.0-36.0); MEAN CORPUSCULAR VOLUME 92 fl (80-97); PLATELET COUNT 206 10^3/uL (150-450); RED BLOOD COUNT 4.89 10^6/uL (4.35-5.55); RED CELL DISTRIBUTION WIDTH 12.5 % (11.5-14.0); WHITE BLOOD COUNT 8.6 10^3/uL (4.0-10.5)
[2019-06-29 10:15] LABS: ALBUMIN 3.9 g/dL (3.5-5.0); ALKALINE PHOSPHATASE 77 U/L (38-126); ANION GAP 9 (5-19); ASPARTATE AMINO TRANSFERASE 30 U/L (17-59); BILIRUBIN,DIRECT 0.1 mg/dL (0.0-0.4); BILIRUBIN,TOTAL 0.7 mg/dL (0.2-1.3); BLOOD UREA NITROGEN 20 mg/dL (7-20); CALCIUM 9.4 mg/dL (8.4-10.2); CARBON DIOXIDE 28 mmol/L (22-30); CHLORIDE 103 mmol/L (98-107); CHOLESTEROL 233.19 mg/dL (0-200); GLUCOSE 96 mg/dL (75-110); POTASSIUM 4.2 mmol/L (3.6-5.0); TOTAL PROTEIN 6.7 g/dL (6.3-8.2); TRIGLYCERIDES 323 mg/dL (<150)
[2019-06-29 10:27] LABS: DIRECT LDL 112 mg/dL (<100)
[2019-06-29 10:32] LABS: VLDL CHOLESTEROL 64.6 mg/dL (10-31)
[2019-06-29 10:48] LABS: ABSOLUTE LYMPHOCYTES# (MANUAL) 3.1 10^3/uL (0.5-4.7); ABSOLUTE MONOCYTES # (MANUAL) 0.9 10^3/uL (0.1-1.4); BASOPHILS % (MANUAL) 1 % (0-2); EOSINOPHILS % (MANUAL) 5 % (0-6); LYMPHOCYTES % (MANUAL) 23 % (13-45); MONOCYTES % (MANUAL) 11 % (3-13); SEGMENTED NEUTROPHILS % (MAN) 47 % (42-78); TOTAL CELLS COUNTED 100
[2019-06-29 10:51] LABS: OVALOCYTES SLIGHT; PLATELET COMMENT ADEQUATE; POIKILOCYTOSIS SLIGHT; TOXIC GRANULATION SLIGHT
[2019-06-30 13:43] LABS: PATH REVIEW PATHOLOGIST REVIEWED
== END ==
LOC: CCC 09:19
DX: Z00.00 Encounter for general adult medical examination without abnormal findings (principal)
CPT/HCPCS: 36415; 80053; 80061; 83036; 84443; 85025